=== PATIENT | male | born 1950 | race Caucasian/White ===

== ENCOUNTER → 2025-03-01 11:05 | Outpatient (CLI) | payer MEDICARE, OTHER, SELFPAY | PROVIDERS: PCP Family Medicine Geriatric Medicine; Referring Provider Student in an Organized Health Care Education/Training Program; Visit Provider Student in an Organized Health Care Education/Training Program | DX: R06.09 Other forms of dyspnea (principal); Z87.891 Personal history of nicotine dependence; R94.2 Abnormal results of pulmonary function studies; J98.8 Other specified respiratory disorders | CPT/HCPCS: 94060; 94726; 94729 ==